=== PATIENT | female | born 1960 | race Caucasian/White ===

== ENCOUNTER 2017-10-01 12:40 | Observation (INO) | payer OTHER ==
[2017-10-01] MEDS: Sodium Chloride 0.9% 1000 ML 1,000 ML IV STA ×3 (12:58→15:37)
--- NOTE | 2017-10-01 13:27 | ERPHSYRPT ---
- History of Present Illness Time Seen by Provider: 10/01/17 13:07 Source: patient Exam Limitations: no limitations Patient Subjective Stated Complaint: pt states she had blood drawn today and us of kaushik legs, and then went to [facility] and had a syncopal episode, pt arrived pre ambulance Triage Nursing Assessment: pt alert, resp easy, skin w/d/p. no edam.hr regular Physician History: patient was brought in by EMS after syncopal episode that occurred approximately one hour prior to arrival. Patient had similar episode 2 weeks ago and actually had blood drawn along with lower extremity ultrasound study that was done today. Patient noted she was walking at [facility] when she felt hot , lightheadedness prior to "passing out/legs giving out" for a few seconds. No history of seizures, chest pain, palpitation, shortness of breath, headaches, blurred vision, abdominal/back pain, focal/facial deficit or nausea/vomiting. Patient was doing well prior to 2 weeks ago when she had similar episode but did not have loss of consciousness. Patient denies any tobacco or alcohol use. States no recent illnesses, including cough, fever, chills, sore throat, nasal congestion or urinary symptoms. Patient does note just being more generalized weak over the past few days. Witnessed: bystander Prior Episodes: single episode today Timing/Duration: today, week(s) (2 weeks ago), intermittent, resolved prior to arrival Precipitating Factors: lightheadedness Context: standing Loss of Consciousness: brief (seconds) Charcter of event(s): became unresponsive, felt faint Allergies/Adverse Reactions: Penicillins Allergy (Verified 10/01/17 12:41) Home Medications: Unobtainable [Unobtainable] 10/01/17 [History] Hx Influenza Vaccination/Date Given: No Hx Pneumococcal Vaccination/Date Given: No Immunizations Up to Date: Yes - Past Medical History Pertinent Past Medical History: No - Past Surgical History Past Surgical History: Yes Gastrointestinal: Cholecystectomy - Social History Smoking Status: Never smoker Exposure to second hand smoke: Yes (occ) Drug Use: none Patient Lives Alone: No - Female History Hx Last Menstrual Period: post Hx Now: No - Review of Systems Constitutional: No Fever, No Chills Eyes: No Symptoms Ears, Nose, & Throat: No Symptoms Respiratory: No Symptoms, No Cough, No Dyspnea Cardiac: No Symptoms, No Chest Pain, No Edema, No Syncope Abdominal/Gastrointestinal: No Symptoms, No Abdominal Pain, No Nausea, No Vomiting, No Diarrhea Genitourinary Symptoms: No Symptoms, No Dysuria Musculoskeletal: No Symptoms, No Back Pain, No Neck Pain Skin: No Symptoms, No Rash Neurological: Dizziness, No Focal Weakness, No Seizure, No Sensory Changes, No Speech Changes Psychological: No Symptoms Endocrine: No Symptoms All Other Systems: Reviewed and Negative Physical Exam - Nursing Vital Signs Nursing Vital Signs: Initial Vital Signs Temperature 97.7 F 10/01/17 12:43 Pulse Rate 69 10/01/17 12:43 Respiratory Rate 16 10/01/17 12:43 Blood Pressure 151/72 10/01/17 12:43 O2 Sat by Pulse Oximetry 98 10/01/17 12:43 Pain Scale Pain Intensity 0 - [place] Coma Scale Best Eye Response ([place]): (4) open spontaneously Best Verbal Response (Khushboo): (5) oriented Best Motor Response (Khushboo): (6) obeys commands [place] Total: 15 - Physical Exam General Appearance: no apparent distress, alert Eye Exam: bilateral eye: PERRL, EOMI Ears, Nose, Throat Exam: normal ENT inspection, pharynx normal, moist mucous membranes Neck Exam: normal inspection, non-tender, supple, full range of motion Respiratory: normal breath sounds, lungs clear, No chest tenderness, No respiratory distress Cardiovascular: regular rate/rhythm, capillary refill <2 sec, No murmur, No pulse deficit Gastrointestinal: soft, No tenderness, No distention, No mass Pelvic Exam: not done Rectal Exam: deferred Back Exam: normal inspection, normal range of motion, No CVA tenderness, No vertebral tenderness Extremity Exam: normal inspection, normal range of motion, pelvis stable, No tenderness Peripheral Pulses: dorsalis-pedis (R): 2+, dorsalis-pedis (L): 2+ Mental Status: alert, oriented x 3, cooperative hide sorter Exam: normal hearing, normal speech, PERRL, No facial droop Coordination/Gait: normal finger to nose Motor/Sensory: no motor deficit, no sensory deficit, no pronator drift DTR: knee (R): 2+, knee (L): 2+ Skin Exam: normal color, warm, dry, No rash SpO2 Interpretation: normal SpO2: 98 Oxygen Delivery: Room Air - Course Nursing assessment & vital signs reviewed: Yes EKG Interpreted by Me: RATE (69), Sinus Rhythm, NORMAL AXIS, NORMAL INTERVALS, NORMAL QRS, Non-specific ST Changes - Radiology Exams Chest X-ray Interpretation: Teleradiologist Report, Negative - CT Exams Chest CT Interpretation: Negative, Tele-radiologist Report - Radiology Ultrasound Exam Arterial Lower Extremity Ultrasound: tele radiology report (Bilat arterial studies negative) Ordered Tests: Active Orders 24 hr Category Date Time Status Network Control Operators Supervisor STAT Care 10/01/17 12:53 Active Clean Catch Urine Specimen STAT Care 10/01/17 13:06 Active IV Insertion STAT Care 10/01/17 12:51 Active Orthostatic Vital Signs STAT Care 10/01/17 12:51 Active CHEST WITH CONTRAST [CT] Stat Exams 10/01/17 13:54 Completed HEAD WITHOUT CONTRAST [CT] Stat Exams 10/01/17 12:53 Completed BMP Stat Lab 10/01/17 12:57 Completed CULTURE,URINE Stat Lab 10/01/17 14:15 Received D-DIMER QUANTITATION Stat Lab 10/01/17 12:51 Completed TROPONIN Q3H Lab 10/01/17 13:00 Completed TROPONIN Q3H Lab 10/01/17 16:00 Ordered TROPONIN Q3H Lab 10/01/17 19:00 Ordered TROPONIN Q3H Lab 10/01/17 22:00 Ordered UA W/RFX UR CULTURE Stat Lab 10/01/17 14:15 Completed Medication Summary Discontinued Medications Generic Name Dose Route Start Last Admin Trade Name Freq PRN Reason Stop Dose Admin Sodium Chloride 1,000 mls @ 500 mls/hr 10/01/17 12:51 10/01/17 15:37 Sodium Chloride 0.9% 1000 Ml IV 10/01/17 14:50 Not Given .Q2H STA Lab/Rad Data: Laboratory Result Diagrams 10/01/17 12:57 Laboratory Results 10/01/17 10/01/17 10/01/17 Range/Units 14:15 13:00 12:57 D-Dimer (215-500) ng/mL Sodium 141 (137-145) mmol/L Potassium 3.7 (3.5-5.1) mmol/L Chloride 101 (98-107) mmol/L Carbon Dioxide 30 (22-30) mmol/L Anion Gap 14.3 (5-15) MEQ/L BUN 18 H (7-17) mg/dL Creatinine 0.85 (0.52-1.04) mg/dL Estimated GFR > 60.0 ML/MIN Glucose 171 H (74-106) mg/dL Calcium 9.4 (8.4-10.2) mg/dL Troponin I < 0.012 (0.000-0.034) ng/mL Ur Collection Type VOID Urine Color YELLOW (YELLOW) Urine Appearance CLEAR (CLEAR) Urine pH 5.0 (5-6) Ur Specific [place] 1.020 (1.005-1.025) Urine Protein 1+ (Negative) Urine Ketones NEGATIVE (NEGATIVE) Urine Blood 5-10 (0-5) Marshal/ul Urine Nitrite NEGATIVE (NEGATIVE) Urine Bilirubin NEGATIVE (NEGATIVE) Urine Urobilinogen NORMAL (0-1) mg/dL Ur Leukocyte Esterase NEGATIVE (NEGATIVE) Urine Culture Reflexed YES (NO) Urine Glucose NEGATIVE (NEGATIVE) mg/dL Specimen Received 10/01/17 1415 10/01/17 Range/Units 12:51 D-Dimer 901 H* (215-500) ng/mL Sodium (137-145) mmol/L Potassium (3.5-5.1) mmol/L Chloride (98-107) mmol/L Carbon Dioxide (22-30) mmol/L Anion Gap (5-15) MEQ/L BUN (7-17) mg/dL Creatinine (0.52-1.04) mg/dL Estimated GFR ML/MIN Glucose (74-106) mg/dL Calcium (8.4-10.2) mg/dL Troponin I (0.000-0.034) ng/mL Ur Collection Type Urine Color (YELLOW) Urine Appearance (CLEAR) Urine pH (5-6) Ur Specific [place] (1.005-1.025) Urine Protein (Negative) Urine Ketones (NEGATIVE) Urine Blood (0-5) Marshal/ul Urine Nitrite (NEGATIVE) Urine Bilirubin (NEGATIVE) Urine Urobilinogen (0-1) mg/dL Ur Leukocyte Esterase (NEGATIVE) Urine Culture Reflexed (NO) Urine Glucose (NEGATIVE) mg/dL Specimen Received - Progress Progress: improved Progress Note: 10/01/17 13:28 will obtain blood work, UA, EKG along with head CT for evaluation of syncope. Pt will also receive IVF's as well. 10/01/17 14:01 Discussed with : Rodney Will see patient in: hospital (observation) Counseled pt/family regarding: lab results, diagnosis, rad results - Departure Time of Disposition: 15:39 Departure Disposition: Home Clinical Impression: Syncopal episodes Condition: Stable Critical Care Time: No Referrals: ROYAL ROBERT MD [Primary Care Provider] -
--- NOTE | 2017-10-01 13:31 | XRAY ---
Indication: Syncope. Multiple contiguous axial images obtained through the head without contrast. Comparison: None Images through the base of the brain slightly degraded by motion artifact. Ventriculosulcal pattern symmetric. No acute intracranial hemorrhage, abnormal extra-axial fluid collection, or mass effect. Fourth ventricle is midline without hydrocephalus. Lowery-white matter differentiation preserved. Bony calvarium intact. Visualized paranasal sinuses and mastoid air cells are clear. Impression: Minimal motion artifact. No gross acute intracranial abnormalities. CT DI 70.38
[2017-10-01 13:38] LABS: ANION GAP 14.3 MEQ/L (5-15); BLOOD UREA NITROGEN 18 mg/dL (7-17); CHLORIDE 101 mmol/L (98-107); Calcium 9.4 mg/dL (8.4-10.2); Carbon Dioxide 30 mmol/L (22-30); Creatinine 1 0.85 mg/dL (0.52-1.04); Glucose 171 mg/dL (74-106); Potassium 3.7 mmol/L (3.5-5.1); SODIUM 141 mmol/L (137-145)
[2017-10-01 14:29] LABS: Appearance CLEAR (CLEAR); Bilirubin NEGATIVE (NEGATIVE); Glucose NEGATIVE (NEGATIVE); Ketones NEGATIVE (NEGATIVE); Leukocyte Esterase NEGATIVE (NEGATIVE); Nitrite NEGATIVE (NEGATIVE); Protein,Urine Dip 1+ (Negative); Urobilinogen NORMAL mg/dL (0-1)
--- NOTE | 2017-10-01 15:13 | XRAY ---
Indication: Syncope. Elevated d-dimer. Multiple contiguous axial images obtained through the chest using 80 cc Isovue 370 contrast and PE protocol. Comparison: None There is satisfactory opacification of the pulmonary arteries to include the lobar and segmental branches. No filling defect or pulmonary embolus. Heart is not enlarged. Aorta is normal in course and caliber. A few small mediastinal and left hilar calcified nodes. No pathologic mediastinal/hilar lymphadenopathy. Examination of the lung parenchyma demonstrates minimal bilateral dependent atelectasis. Small left lower lobe calcified granulomas. No suspicious pulmonary mass, infiltrate, or effusion. Bony thorax intact. Limited upper abdomen demonstrates mild fatty liver, calcified splenic granulomas, and cholecystectomy clips. Impression: 1. Negative pulmonary embolus. No acute cardiopulmonary abnormalities. 2. Evidence for old granulomatous disease. 3. Fatty liver. CT DI 23.69
[2017-10-01] MEDS ORDERED: TYLENOL 325 MG PO PRN (15:41)
[2017-10-01] MEDS: Sodium Chloride 0.9% 1000 ML 1,000 ML IV SCH (17:22)
--- NOTE | 2017-10-01 21:10 | PCM.HP ---
History of Present Illness - Chief Complaint Chief Complaint: SYNCOPE History of Present Illness: is a 57 year old female.patient was brought in by EMS after syncopal episode that occurred approximately one hour prior to arrival. Patient had similar episode 2 weeks ago and actually had blood drawn along with lower extremity ultrasound study that was done today. Patient noted she was walking at [facility] when she felt hot, lightheadedness prior to "passing out/legs giving out" for a few seconds. No history of seizures, chest pain, palpitation, shortness of breath, headaches, blurred vision, abdominal/back pain, focal/ facial deficit or nausea/vomiting. Patient was doing well prior to 2 weeks ago when she had similar episode but did not have loss of consciousness. Patient denies any tobacco or alcohol use. States no recent illnesses, including cough , fever, chills, sore throat, nasal congestion or urinary symptoms. Patient does note just being more generalized weak over the past few days. Patient was seen in office 2 days ago and was scheduled for further cardiology work up. - Review of Systems Constitutional: No Fever, No Chills Eyes: No Symptoms Ears, Nose, & Throat: No Symptoms Respiratory: No Cough, No Short Of Breath Cardiac: No Chest Pain, No Edema, No Syncope Abdominal/Gastrointestinal: No Abdominal Pain, No Nausea, No Vomiting, No Diarrhea Genitourinary Symptoms: No Dysuria Musculoskeletal: No Back Pain, No Neck Pain Skin: No Rash Neurological: Dizziness, No Focal Weakness, No Sensory Changes Psychological: No Symptoms Endocrine: No Symptoms Hematologic/Lymphatic: No Symptoms Immunological/Allergic: No Symptoms Medications & Allergies Home Medications: Home Medication List No Reportable Medications [No Reported Medications] 10/01/17 [History Confirmed 10/01/17] Allergies/Adverse Reactions: Allergies Allergy/AdvReac Type Severity Reaction Status Date / Time Penicillins Allergy Verified 10/01/17 12:41 - Past Medical History Past Medical History: No - Female History Hx Last Menstrual Period: post Are you now?: No - Past Surgical History Past Surgical History: Yes Neuro Surgical History: No Pertinent History Cardiac History: No Pertinent History Respiratory Surgery: No Pertinent History GI Surgical History: Cholecystectomy Genitourinary Surgical Hx: No Pertinent History Musculskeletal Surgical Hx: No Pertinent History Female Surgical History: No Pertinent History - Social History Smoking Status: Never smoker Exposure to second hand smoke: No Alcohol: Rarely Drug Use: none - Physical Exam Vital Signs: Vital Signs - 24 hr Temp Pulse Resp BP Pulse Ox 10/01/17 20:00 20 10/01/17 19:51 98.6 F 76 20 136/64 96 10/01/17 15:40 98 10/01/17 15:00 96 H 16 152/78 98 10/01/17 12:43 97.7 F 69 16 151/72 98 General Appearance: no apparent distress, alert Neurologic Exam: alert, oriented x 3, cooperative, normal mood/affect, nml cerebellar function, nml station & gait, sensation nml, No motor deficits Eye Exam: PERRL/EOMI, eyes nml inspection Ears, Nose, Throat Exam: normal ENT inspection, TMs normal, pharynx normal, moist mucous membranes Neck Exam: normal inspection, non-tender, supple, full range of motion Respiratory Exam: normal breath sounds, lungs clear, No respiratory distress Cardiovascular Exam: regular rate/rhythm, normal heart sounds, normal peripheral pulses Gastrointestinal/Abdomen Exam: soft, normal bowel sounds, No tenderness, No mass Back Exam: normal inspection, normal range of motion, No CVA tenderness, No vertebral tenderness Extremity Exam: normal inspection, normal range of motion, pelvis stable Skin Exam: normal color, warm, dry, No rash Lymphatic Exam: No adenopathy Results - Labs Lab/Micro Results: Last Vital Signs Temp 98.6 F 10/01/17 19:51 Pulse 76 10/01/17 19:51 Resp 20 10/01/17 20:00 BP 136/64 10/01/17 19:51 Pulse Ox 96 10/01/17 19:51 Allergies Penicillins Allergy (Verified 10/01/17 12:41) Active Medications Acetaminophen (Tylenol 325 Mg) 650 mg PO Q4H PRN PRN PRN Reason: PAIN AND/OR FEVER Stop: 10/31/17 15:40 Aspirin (Ecotrin 325 Mg) 325 mg PO HS NEVAEH Stop: 10/31/17 21:59 Last Admin: 10/01/17 21:04 Dose: 325 mg Sodium Chloride (Sodium Chloride 0.9% 1000 Ml) 1,000 mls @ 100 mls/hr IV .Q10H NEVAEH Stop: 10/31/17 16:44 Last Admin: 10/01/17 17:22 Dose: 100 mls/hr Intake & Output 05/16/18 05/17/18 11:59 11:59 Intake Total 320 Balance 320 Weight 99.1 kg Orders 10/01/17 16:45 NaCl 0.9% 1000 ml [Sodium Chloride 0.9% 1000 ML] 1,000 ml IV 100 mls/hr 10/02/17 04:00 CBC AM.LAB CMP AM.LAB 10/02/17 08:00 ECHO W/2D AND DOPPLER [US] Routine Lab Tests 10/01/17 10/01/17 10/01/17 12:51 12:57 13:00 D-Dimer 901 H* Sodium 141 Potassium 3.7 Chloride 101 Carbon Dioxide 30 Anion Gap 14.3 BUN 18 H Creatinine 0.85 Estimated GFR > 60.0 Glucose 171 H Calcium 9.4 Troponin I < 0.012 Ur Collection Type Urine Color Urine Appearance Urine pH Ur Specific [place] Urine Protein Urine Ketones Urine Blood Urine Nitrite Urine Bilirubin Urine Urobilinogen Ur Leukocyte Esterase Urine Culture Reflexed Urine Glucose Specimen Received 10/01/17 14:15 D-Dimer Sodium Potassium Chloride Carbon Dioxide Anion Gap BUN Creatinine Estimated GFR Glucose Calcium Troponin I Ur Collection Type VOID Urine Color YELLOW Urine Appearance CLEAR Urine pH 5.0 Ur Specific [place] 1.020 Urine Protein 1+ Urine Ketones NEGATIVE Urine Blood 5-10 Urine Nitrite NEGATIVE Urine Bilirubin NEGATIVE Urine Urobilinogen NORMAL Ur Leukocyte Esterase NEGATIVE Urine Culture Reflexed YES Urine Glucose NEGATIVE Specimen Received 10/01/17 1415 - Radiology Impressions Radiology Exams & Impressions: Radiology Procedures Category Date Time Status ECHO W/2D AND DOPPLER [US] Routine Exams 10/02/17 08:00 Ordered Assessment/Plan (1) Syncopal episodes Current Visit: Yes Status: Acute Qualifiers: Syncope type: unspecified Qualified Code(s): R55 - Syncope and collapse Assessment & Plan: Chief Complaint Diagnosis SYNCOPE Allergies Allergy/AdvReac Type Severity Reaction Status Date / Time Penicillins Allergy Verified 10/01/17 12:41 Vital Signs (Last 24 hours) Temp Pulse Resp BP Pulse Ox 10/01/17 20:00 20 10/01/17 19:51 98.6 F 76 20 136/64 96 10/01/17 15:40 98 10/01/17 15:00 96 H 16 152/78 98 10/01/17 12:43 97.7 F 69 16 151/72 98 Home Medications Medication Instructions Recorded Confirmed Last Taken Type No Reportable Medications [No 10/01/17 10/01/17 Unknown History Reported Medications] Current Medications Generic Name Dose Route Start Last Admin Trade Name Francie PRN Reason Stop Dose Admin Acetaminophen 650 mg 10/01/17 15:41 Tylenol 325 Mg PO 10/31/17 15:40 Q4H PRN PRN PAIN AND/OR FEVER Aspirin 325 mg 10/01/17 22:00 10/01/17 21:04 Ecotrin 325 Mg PO 10/31/17 21:59 325 mg HS NEVAEH Administration Sodium Chloride 1,000 mls @ 100 mls/hr 10/01/17 16:45 10/01/17 17:22 Sodium Chloride 0.9% 1000 Ml IV 10/31/17 16:44 100 mls/hr .Q10H NEVAEH Administration Discontinued Medications Generic Name Dose Route Start Last Admin Trade Name Francie PRN Reason Stop Dose Admin Sodium Chloride 1,000 mls @ 500 mls/hr 10/01/17 12:51 10/01/17 15:37 Sodium Chloride 0.9% 1000 Ml IV 10/01/17 14:50 Not Given .Q2H STA Intake & Output (Last 24 hours) 09/29/17 09/30/17 10/01/17 10/02/17 11:59 11:59 11:59 11:59 Intake Total 320 Balance 320 Weight 99.1 kg Microbiology Results (Last 24 hours) 10/01/17 14:15 Urine, Void Urine Culture - Pending Laboratory Results (Last 24 hours) 10/01/17 10/01/17 10/01/17 14:15 13:00 12:57 D-Dimer Sodium 141 Potassium 3.7 Chloride 101 Carbon Dioxide 30 Anion Gap 14.3 BUN 18 H Creatinine 0.85 Estimated GFR > 60.0 Glucose 171 H Calcium 9.4 Troponin I < 0.012 Ur Collection Type VOID Urine Color YELLOW Urine Appearance CLEAR Urine pH 5.0 Ur Specific [place] 1.020 Urine Protein 1+ Urine Ketones NEGATIVE Urine Blood 5-10 Urine Nitrite NEGATIVE Urine Bilirubin NEGATIVE Urine Urobilinogen NORMAL Ur Leukocyte Esterase NEGATIVE Urine Culture Reflexed YES Urine Glucose NEGATIVE Specimen Received 10/01/17 1415 10/01/17 12:51 D-Dimer 901 H* Sodium Potassium Chloride Carbon Dioxide Anion Gap BUN Creatinine Estimated GFR Glucose Calcium Troponin I Ur Collection Type Urine Color Urine Appearance Urine pH Ur Specific [place] Urine Protein Urine Ketones Urine Blood Urine Nitrite Urine Bilirubin Urine Urobilinogen Ur Leukocyte Esterase Urine Culture Reflexed Urine Glucose Specimen Received Orders (Last 24 hours) Category Date Time Status Up Ad Lora ROUTINE Activity 10/01/17 15:43 Active Call Admit Doctor for Orders ON ADMISSION Care 10/01/17 15:42 Active Office Inspector STAT Care 10/01/17 12:53 Completed Clean Catch Urine Specimen STAT Care 10/01/17 13:06 Completed Code Status Order ROUTINE Care 10/01/17 15:42 Active IV Care Q6H Care 10/01/17 15:42 Active IV Insertion STAT Care 10/01/17 12:51 Completed Orthostatic Vital Signs STAT Care 10/01/17 12:[address] in Observation ROUTINE Care 10/01/17 15:42 Active Vital Signs Q4H Care 10/01/17 15:41 Active Regular Diet Diet 10/01/17 Dinner Active CHEST WITH CONTRAST [CT] Stat Exams 10/01/17 13:54 Completed ECHO W/2D AND DOPPLER [US] Routine Exams 10/02/17 08:00 Ordered HEAD WITHOUT CONTRAST [CT] Stat Exams 10/01/17 12:53 Completed BMP Stat Lab 10/01/17 12:57 Completed CBC AM.LAB Lab 10/02/17 04:00 Ordered CMP AM.LAB Lab 10/02/17 04:00 Ordered CULTURE,URINE Stat Lab 10/01/17 14:15 Received D-DIMER QUANTITATION Stat Lab 10/01/17 12:51 Completed TROPONIN Q3H Lab 10/01/17 13:00 Completed UA W/RFX UR CULTURE Stat Lab 10/01/17 14:15 Completed Acetaminophen 325 mg [Tylenol 325 mg] Med 10/01/17 15:41 Active 650 mg PO Q4H PRN PRN Aspirin EC 325 mg [Ecotrin 325 MG] Med 10/01/17 22:00 Active 325 mg PO HS NaCl 0.9% 1000 ml [Sodium Chloride 0.9% 1000 ML] 1,000 Med 10/01/17 16:45 Active ml IV 100 mls/hr NaCl 0.9% 1000 ml [Sodium Chloride 0.9% 1000 ML] 1,000 Med 10/01/17 12:51 Discontinued ml IV 500 mls/hr Transfer Order Routine Transfer 10/01/17 Completed Code(s): R55 - SYNCOPE AND COLLAPSE
[2017-10-01] MEDS ORDERED: Ecotrin 325 MG PO SCH (22:00)
[2017-10-02] MEDS: Sodium Chloride 0.9% 1000 ML 1,000 ML IV SCH (04:17)
[2017-10-02 05:50] LABS: Hematocrit 41.1 % (35-47); Mean Cell Volume 89.2 fl (78-100); Mean Corpuscular Hemoglobin 28.2 pg (26-32); Mean Corpuscular Hgb Concent. 31.6 g/dl (32-36); Mean Platelet Volume 10.3 fl (6-9.5); Platelet Count 279 K/mm3 (150-450); Red Blood Count 4.61 M/mm3 (4.1-5.4); Red Cell Distribution Width 14.1 % (11.5-14.0); White Blood Count 9.6 K/mm3 (4.0-10.5)
[2017-10-02 06:00] LABS: ALBUMIN 3.4 g/dL (3.5-5.0); ALKALINE PHOSPHATASE 92 U/L (38-126); ANION GAP 12.2 MEQ/L (5-15); BLOOD UREA NITROGEN 14 mg/dL (7-17); CHLORIDE 104 mmol/L (98-107); Calcium 8.6 mg/dL (8.4-10.2); Carbon Dioxide 30 mmol/L (22-30); Creatinine 1 0.78 mg/dL (0.52-1.04); Glucose 92 mg/dL (74-106); Potassium 4.3 mmol/L (3.5-5.1); SGOT/AST 18 U/L (14-36); SGPT/ALT 22 U/L (0-35); SODIUM 142 mmol/L (137-145); Total Protein 6.2 g/dL (6.3-8.2)
--- NOTE | 2017-10-02 10:31 | XRAY ---
Indication: Syncope. Two-dimensional sonogram and color Doppler imaging of the carotid arteries of the neck performed. Comparison: None Examination of the right carotid circulation demonstrates slightly tortuous common carotid artery. Minimal carotid bulb intimal thickening. No focal arteriosclerotic plaquing, critical stenosis, or obstruction. PSV of CCA is 97 cm/s. PSV of the ICA is 125 cm/s. ICA/CCA ratio is 1.3. Normal antegrade vertebral artery flow. Examination of the left carotid circulation also widely patent with carotid bulb intimal thickening. PSV of the CCA is 89 cm/s. PSV in the ICA is 114 cm/s. ICA/CCA ratio is 1.3. Normal antegrade vertebral artery flow. Impression: Bilateral carotid ultrasound examination negative for critical stenosis/obstruction. Velocity measurements and ratios are also negative for hemodynamically significant flow-limiting stenosis.
[2017-10-02 11:10] VITALS: BP 190/75; PULSE 75; O2SAT 98
--- NOTE | 2017-10-02 12:38 | PCM.DS ---
Discharge Summary Date of Admission: 10/01/17 15:54 Admitting Physician: ROYAL ROBERT Consults: Consults on Case 10/02/17 09:19 Consult Cardiology ROUTINE Primary Care Provider: ROYAL ROBERT Allergies Allergies Penicillins Allergy (Verified 10/01/17 12:41) Hospital Summary - Hospital Course Hospital Course: Chief Complaint Diagnosis SYNCOPE Allergies Allergy/AdvReac Type Severity Reaction Status Date / Time Penicillins Allergy Verified 10/01/17 12:41 Vital Signs (Last 24 hours) Temp Pulse Resp BP Pulse Ox 10/02/17 11:10 97.5 F 75 20 190/75 98 10/02/17 07:17 97.8 F 62 20 180/82 99 10/02/17 04:00 98.1 F 71 18 107/59 96 10/02/17 00:00 98.4 F 66 20 157/82 95 10/01/17 20:00 20 10/01/17 19:51 98.6 F 76 20 136/64 96 10/01/17 15:40 98 10/01/17 15:00 96 H 16 152/78 98 10/01/17 12:43 97.7 F 69 16 151/72 98 Home Medications Medication Instructions Recorded Confirmed Last Taken Type No Reportable Medications [No 10/01/17 10/01/17 Unknown History Reported Medications] Current Medications Generic Name Dose Route Start Last Admin Trade Name Freq PRN Reason Stop Dose Admin Acetaminophen 650 mg 10/01/17 15:41 10/02/17 00:00 Tylenol 325 Mg PO 10/31/17 15:40 650 mg Q4H PRN PRN Administration PAIN AND/OR FEVER Aspirin 325 mg 10/01/17 22:00 10/01/17 21:04 Ecotrin 325 Mg PO 10/31/17 21:59 325 mg HS NEVAEH Administration Sodium Chloride 1,000 mls @ 100 mls/hr 10/01/17 16:45 10/02/17 04:17 Sodium Chloride 0.9% 1000 Ml IV 10/31/17 16:44 100 mls/hr .Q10H NEVAEH Administration Discontinued Medications Generic Name Dose Route Start Last Admin Trade Name Freq PRN Reason Stop Dose Admin Sodium Chloride 1,000 mls @ 500 mls/hr 10/01/17 12:51 10/01/17 15:37 Sodium Chloride 0.9% 1000 Ml IV 10/01/17 14:50 Not Given .Q2H STA Sodium Chloride Confirm 10/02/17 04:16 Sodium Chloride 0.45% 1000 Ml Administered 10/02/17 04:17 Dose 1,000 mls @ ud IV .STK-MED ONE Intake & Output (Last 24 hours) 09/30/17 10/01/17 10/02/17 10/03/17 11:59 11:59 11:59 11:59 Intake Total 2280 360 Output Total 303 400 Balance 1976 Weight 99.1 kg Microbiology Results (Last 24 hours) 10/01/17 14:15 Urine, Void Urine Culture - Preliminary <10K NORMAL SKIN SRINATH PROBABLE SKIN CONTAMINANT Laboratory Results (Last 24 hours) 10/02/17 10/02/17 10/01/17 05:10 05:10 14:15 WBC 9.6 RBC 4.61 Hgb 13.0 Hct 41.1 MCV 89.2 MCH 28.2 MCHC 31.6 L RDW 14.1 H Plt Count 279 MPV 10.3 H D-Dimer Sodium 142 Potassium 4.3 Chloride 104 Carbon Dioxide 30 Anion Gap 12.2 BUN 14 Creatinine 0.78 Estimated GFR > 60.0 Glucose 92 Calcium 8.6 Total Bilirubin 0.20 AST 18 ALT 22 Alkaline Phosphatase 92 Troponin I Serum Total Protein 6.2 L Albumin 3.4 L Ur Collection Type VOID Urine Color YELLOW Urine Appearance CLEAR Urine pH 5.0 Ur Specific [place] 1.020 Urine Protein 1+ Urine Ketones NEGATIVE Urine Blood 5-10 Urine Nitrite NEGATIVE Urine Bilirubin NEGATIVE Urine Urobilinogen NORMAL Ur Leukocyte Esterase NEGATIVE Urine Culture Reflexed YES Urine Glucose NEGATIVE Specimen Received 10/01/17 1415 10/01/17 10/01/17 10/01/17 13:00 12:57 12:51 WBC RBC Hgb Hct MCV MCH MCHC RDW Plt Count MPV D-Dimer 901 H* Sodium 141 Potassium 3.7 Chloride 101 Carbon Dioxide 30 Anion Gap 14.3 BUN 18 H Creatinine 0.85 Estimated GFR > 60.0 Glucose 171 H Calcium 9.4 Total Bilirubin AST ALT Alkaline Phosphatase Troponin I < 0.012 Serum Total Protein Albumin Ur Collection Type Urine Color Urine Appearance Urine pH Ur Specific [place] Urine Protein Urine Ketones Urine Blood Urine Nitrite Urine Bilirubin Urine Urobilinogen Ur Leukocyte Esterase Urine Culture Reflexed Urine Glucose Specimen Received Orders (Last 24 hours) Category Date Time Status Up Ad Lora ROUTINE Activity 10/01/17 15:43 Active Call Admit Doctor for Orders ON ADMISSION Care 10/01/17 15:42 Active Hip Hop Dancer STAT Care 10/01/17 12:53 Completed Clean Catch Urine Specimen STAT Care 10/01/17 13:06 Completed Code Status Order ROUTINE Care 10/01/17 15:42 Active IV Care Q6H Care 10/01/17 15:42 Active IV Insertion STAT Care 10/01/17 12:51 Completed Orthostatic Vital Signs STAT Care 10/01/17 12:[address] in Observation ROUTINE Care 10/01/17 15:42 Active Vital Signs Q4H Care 10/01/17 15:41 Active Consult Cardiology ROUTINE Cons 10/02/17 09:19 Active Regular Diet Diet 10/01/17 Dinner Active CAROTID BILATERAL [US] Urgent Exams 10/02/17 10:15 Completed CHEST WITH CONTRAST [CT] Stat Exams 10/01/17 13:54 Completed ECHO W/2D AND DOPPLER [US] Routine Exams 10/02/17 08:00 Taken HEAD WITHOUT CONTRAST [CT] Stat Exams 10/01/17 12:53 Completed BMP Stat Lab 10/01/17 12:57 Completed CBC AM.LAB Lab 10/02/17 05:10 Completed CMP AM.LAB Lab 10/02/17 05:10 Completed CULTURE,URINE Stat Lab 10/01/17 14:15 Results D-DIMER QUANTITATION Stat Lab 10/01/17 12:51 Completed TROPONIN Q3H Lab 10/01/17 13:00 Completed UA W/RFX UR CULTURE Stat Lab 10/01/17 14:15 Completed Acetaminophen 325 mg [Tylenol 325 mg] Med 10/01/17 15:41 Active 650 mg PO Q4H PRN PRN Aspirin EC 325 mg [Ecotrin 325 MG] Med 10/01/17 22:00 Active 325 mg PO HS NaCl 0.45% 1000 ml [Sodium Chloride 0.45% 1000 ML] 1, Med 10/02/17 04:16 Discontinued 000 ml IV UD NaCl 0.9% 1000 ml [Sodium Chloride 0.9% 1000 ML] 1,000 Med 10/01/17 16:45 Active ml IV 100 mls/hr NaCl 0.9% 1000 ml [Sodium Chloride 0.9% 1000 ML] 1,000 Med 10/01/17 12:51 Discontinued ml IV 500 mls/hr Patient Care Notes (Last 24 hours) 10/02/17 09:35 Nursing Note by Danielle Linder Dr[facility]s office notified of consult, stated if patient is ok for dc they could see her in the office tomorrow. Will notify Dr. Robert when he rounds on patient and let the office know Initialized on 10/02/17 09:35 - END OF NOTE - Vitals & Intake/Output Vital Signs: Vital Signs Temperature 97.5 F 10/02/17 11:10 Pulse Rate 75 10/02/17 11:10 Respiratory Rate 20 10/02/17 11:10 Blood Pressure 190/75 10/02/17 11:10 O2 Sat by Pulse Oximetry 98 10/02/17 11:10 Intake & Output: Intake & Output 09/30/17 10/01/17 10/02/17 10/03/17 11:59 11:59 11:59 11:59 Intake Total 2280 360 Output Total 303 400 Balance 1976 Weight 99.1 kg - Lab Result Diagrams: 10/02/17 05:10 10/02/17 05:10 Lab Results-Last 24 Hrs: Lab Results-Last 24 Hours 10/02/17 10/02/17 Range/Units 05:10 05:10 WBC 9.6 (4.0-10.5) K/mm3 RBC 4.61 (4.1-5.4) M/mm3 Hgb 13.0 (12.0-16.0) gm/dl Hct 41.1 (35-47) % MCV 89.2 (78-100) fl MCH 28.2 (26-32) pg MCHC 31.6 L (32-36) g/dl RDW 14.1 H (11.5-14.0) % Plt Count 279 (150-450) K/mm3 MPV 10.3 H (6-9.5) fl Sodium 142 (137-145) mmol/L Potassium 4.3 (3.5-5.1) mmol/L Chloride 104 (98-107) mmol/L Carbon Dioxide 30 (22-30) mmol/L Anion Gap 12.2 (5-15) MEQ/L BUN 14 (7-17) mg/dL Creatinine 0.78 (0.52-1.04) mg/dL Estimated GFR > 60.0 ML/MIN Glucose 92 (74-106) mg/dL Calcium 8.6 (8.4-10.2) mg/dL Total Bilirubin 0.20 (0.2-1.3) mg/dL AST 18 (14-36) U/L ALT 22 (0-35) U/L Alkaline Phosphatase 92 (38-126) U/L Serum Total Protein 6.2 L (6.3-8.2) g/dL Albumin 3.4 L (3.5-5.0) g/dL - Radiology Exams Ordered Rad Exams-Entire Visit: Radiology Procedures Category Date Time Status CAROTID BILATERAL [US] Urgent Exams 10/02/17 10:15 Completed ECHO W/2D AND DOPPLER [US] Routine Exams 10/02/17 08:00 Taken Discharge Exam General Appearance: no apparent distress, alert Neurologic Exam: alert, oriented x 3, cooperative, normal mood/affect, nml cerebellar function, sensation nml, No motor deficits Skin Exam: normal color, warm, dry Eye Exam: PERRL, EOMI, eyes nml inspection Ears, Nose, Throat Exam: normal ENT inspection, pharynx normal, moist mucous membranes Neck Exam: normal inspection, non-tender, supple, full range of motion Respiratory Exam: normal breath sounds, lungs clear, No respiratory distress Cardiovascular Exam: regular rate/rhythm, normal heart sounds Gastrointestinal/Abdomen Exam: soft, No tenderness, No mass Extremity Exam: normal inspection, normal range of motion Back Exam: normal inspection, normal range of motion, No CVA tenderness, No vertebral tenderness Pelvic Exam: deferred Rectal Exam: deferred Final Diagnosis/Problem List - Final Discharge Diagnosis/Problem (1) Syncopal episodes Current Visit: Yes Status: Acute - Discharge Discharge Date: 10/02/17 Disposition: Home, Self-Care Condition: Stable Prescriptions: New Aspirin EC 325 mg [Ecotrin 325 MG] 325 mg PO HS 30 Days #30 tablet.ec Metoprolol Tartrate 25 mg [Lopressor 25MG Tab] 25 mg PO DAILY 30 Days # 30 tab Follow up with: NIEVES HOGAN [ACTIVE STAFF] - 10/03/17 11:00 am ROYAL ROBERT MD [Primary Care Provider] - 10/09/17 10:15 am ([facility])
--- NOTE | 2017-10-02 13:29 | ECHO ---
Transthoracic echocardiographic examination and color Doppler was done on 10/02/2017. INDICATION: Syncope. IMPRESSION: 1) NO REGIONAL WALL MOTION ABNORMALITY. ESTIMATED GLOBAL LEFT VENTRICULAR EJECTION FRACTION OF AROUND 60%. 2) MILD TO MODERATE MITRAL REGURGITATION. 3) MILD TRICUSPID REGURGITATION. RIGHT VENTRICULAR SYSTOLIC PRESSURE OF 33 MM OF MERCURY. 4) LEFT VENTRICULAR HYPERTROPHY. The left ventricle is visualized and demonstrated adequate motion of all the segments. Estimated global left ventricular ejection fraction around 60%. There is mild left ventricular hypertrophy. The mitral valve is seen and this opens adequately. There is mild to moderate mitral regurgitation. Left atrium is normal. The aortic valve opens adequately. There is no significant gradient across the left ventricular outflow tract. The right side chambers are normal. There is mild tricuspid regurgitation. The right ventricular systolic pressure of 33 mm of [place].
== END 2017-10-02 13:15 | disposition home or self-care (01) ==
LOC: ED 12:40 → MED SURG 15:54
PROVIDERS: ADMIT General Practice; ATTEND General Practice
DX: R55 Syncope and collapse (principal)
CPT/HCPCS: 36000; 36415; 70450; 71260; 80048; 80053; 81002; 84439; 84443; 84481; 84484; 85025; 85027; 85379; 87086; 93041; 93268; 93306; 93880; 93925; 96360; 96361; 99285; A9270-GY; G0378